=== PATIENT | female | born 1995 | race Caucasian/White ===

== ENCOUNTER 2017-02-22 16:27 | Emergency (ER) | payer SELFPAY ==
[2017-02-22 17:09] VITALS: BP 124/60
[2017-02-22] MEDS ORDERED: Sodium Chloride 0.9% 10 ML Syringe FLUSH PRN (17:21)
[2017-02-22] MEDS ORDERED: HYDROmorphone 0.5 MG/0.5 ML Syringe IVPUSH ONE (17:21)
[2017-02-22] MEDS ORDERED: Ondansetron 4 MG/2 ML SDV IVPUSH ONE (17:21)
--- NOTE | 2017-02-22 17:24 | EDM.PDOC ---
ED HPI GENERAL MEDICAL PROBLEM - General Chief Complaint: General Stated Complaint: SEVERE RT SIDE ABD PAIN Time Seen by Provider: 02/22/17 17:08 Source of Information: Reports: Patient, Old records, RN notes reviewed History Limitations: Reports: No limitations - History of Present Illness INITIAL COMMENTS - FREE TEXT/NARRATIVE: 21-year-old female presents emergency department for a complaint of right upper quadrant pain she has had pain for last 3-4 days was in the clinic yesterday for evaluation had plain films of the abdomen done the urinalysis blood work done urinalysis was remarkable concerning urinary tract infection however culture grew mixed contaminants, she has had nausea and vomiting with bile pain in the abdomen right upper quadrant is significantly worse after she eats rates it a 10 out of 10 will then resolve no difficulty with bowel movements she has had chills no fevers - Related Data Allergies Allergy/AdvReac Type Severity Reaction Status Date / Time No Known Allergies Allergy Verified 07/09/16 20:47 Home Meds: Home Meds NK [No Known Home Meds] 02/22/17 [History] Past Medical History Neurological History: Reports: Concussion Endocrine/Metabolic History: Reports: Obesity/BMI 30+ Dermatologic History: Reports: Other (see below) Other Dermatologic History: dandriff Social & Family History - Family History Family Medical History: Noncontributory - Tobacco Use Smoking Status *Q: Current Every Day Smoker Years of Tobacco use: 8 Packs/Tins Daily: 1 - Recreational Drug Use Recreational Drug Use: No ED ROS GENERAL - Review of Systems Review Of Systems: See Below Constitutional: Reports: chills. Denies: fever HEENT: Reports: No symptoms Respiratory: Reports: No Symptoms Cardiovascular: Reports: No symptoms GI/Abdominal: Reports: Abdominal pain, Flatus, Nausea, Vomiting : Reports: no symptoms Musculoskeletal: Reports: no symptoms Skin: Reports: no symptoms Neurological: Reports: No Symptoms ED EXAM, GENERAL - Physical Exam Exam: See Below Exam Limited By: No limitations General Appearance: alert, WD/WN, no apparent distress Head: atraumatic, normocephalic Neck: normal inspection, supple, non-tender, full range of motion Respiratory/Chest: no respiratory distress, lungs clear, normal breath sounds, no accessory muscle use Cardiovascular: regular rate, rhythm, no murmur GI/Abdominal: soft, tender (Right upper quadrant). No: distended, rigid, rebound, hernia, mass Course - Vital Signs Last Recorded V/S: Last Vital Signs Temp 97.9 F 02/22/17 17:00 Pulse 121 H 02/22/17 17:00 Resp 16 02/22/17 17:00 BP 124/60 02/22/17 17:00 Pulse Ox 99 02/22/17 17:00 - Orders/Labs/Meds Orders: Active Orders 24 hr Category Date Time Status Peripheral IV Care [RC] . DIRECTED Care 02/22/17 17:21 Active Abdomen Ltd [US] Stat Exams 02/22/17 17:20 Taken CULTURE URINE [RM] Urgent Lab 02/22/17 18:11 Uncollected Sodium Chloride 0.9% [Normal Saline] 1,000 ml Med 02/22/17 17:30 Active IV ASDIRECTED Sodium Chloride 0.9% [Saline Flush] Med 02/22/17 17:21 Active 10 ml FLUSH ASDIRECTED PRN Peripheral IV Insertion Adult [OM.PC] Urgent Oth 02/22/17 17:21 Ordered Medication Orders Sodium Chloride (Normal Saline) 1,000 mls @ 500 mls/hr IV ASDIRECTED JEFRY Last Admin: 02/22/17 17:36 Dose: 500 mls/hr Sodium Chloride (Saline Flush) 10 ml FLUSH ASDIRECTED PRN PRN Reason: Keep Vein Open Last Admin: 02/22/17 17:34 Dose: 10 ml Labs: Laboratory Tests 02/22/17 02/22/17 02/22/17 Range/Units 17:27 17:27 18:03 WBC 14.2 H (4.5-11.0) K/uL RBC 4.85 (3.30-5.50) M/uL Hgb 14.6 (12.0-15.0) g/dL Hct 42.1 (36.0-48.0) % MCV 87 (80-98) fL MCH 30 (27-31) pg MCHC 35 (32-36) % Plt Count 210 (150-400) K/uL Neut % (Auto) 83 H (36-66) % Lymph % (Auto) 8 L (24-44) % [place] % (Auto) 8 H (2-6) % Eos % (Auto) 0 L (2-4) % Baso % (Auto) 0 (0-1) % Sodium 139 L (140-148) mmol/L Potassium 3.4 L (3.6-5.2) mmol/L Chloride 100 (100-108) mmol/L Carbon Dioxide 27 (21-32) mmol/L Anion Gap 15.4 H (5.0-14.0) mmol/L BUN 9 (7-18) mg/dL Creatinine 0.9 (0.6-1.0) mg/dL Est Cr Clr Drug Dosing 80.42 mL/min Estimated GFR (MDRD) > 60 (>60) Glucose 112 H (74-106) mg/dL Calcium 8.7 (8.5-10.1) mg/dL Total Bilirubin 0.5 (0.2-1.0) mg/dL AST 10 L (15-37) U/L ALT 22 (12-78) U/L Alkaline Phosphatase 89 (46-116) U/L Total Protein 7.6 (6.4-8.2) g/dL Albumin 3.5 (3.4-5.0) g/dL Globulin 4.1 H (2.3-3.5) g/dL Albumin/Globulin Ratio 0.9 L (1.2-2.2) Urine Color Yellow Urine Appearance Cloudy Urine pH 5.0 (4.5-8.0) Ur Specific [place] 1.015 (1.008-1.030) Urine Protein 30 H (NEGATIVE) mg/dL Urine Glucose (UA) Normal (NEGATIVE) mg/dL Urine Ketones 50 H (NEGATIVE) mg/dL Urine Occult Blood Large (NEGATIVE) Urine Nitrite Positive H (NEGATIVE) Urine Bilirubin Small (NEGATIVE) Urine Urobilinogen 4 (NORMAL) mg/dL Ur Leukocyte Esterase Moderate (NEGATIVE) Urine RBC 5-10 H (0-5) Urine WBC 20-30 H (0-5) Ur Epithelial Cells Many Amorphous Sediment Not seen Urine Bacteria Many Urine Mucus Many Meds: Medications Generic Name Dose Route Start Last Admin Trade Name Freq PRN Reason Stop Dose Admin Sodium Chloride 1,000 mls @ 500 mls/hr 02/22/17 17:30 02/22/17 17:36 Normal Saline IV 500 mls/hr ASDIRECTED JEFRY Administration Sodium Chloride 10 ml 02/22/17 17:21 02/22/17 17:34 Saline Flush FLUSH 10 ml ASDIRECTED PRN Administration Keep Vein Open Discontinued Medications Generic Name Dose Route Start Last Admin Trade Name Freq PRN Reason Stop Dose Admin Hydromorphone HCl 0.5 mg 02/22/17 17:21 02/22/17 17:35 Dilaudid IVPUSH 02/22/17 17:22 0.5 mg ONETIME ONE Administration Ondansetron HCl 4 mg 02/22/17 17:21 02/22/17 17:34 Zofran IVPUSH 02/22/17 17:22 4 mg ONETIME ONE Administration Departure - Departure Time of Disposition: 18:14 Disposition: Home, Self-Care 01 Condition: good Clinical Impression: UTI, Urinary tract infectious disease Forms: ED Department Discharge Additional Instructions: Take the full course of antibiotics, use ibuprofen as needed for pain control, Please followup with your primary care provider in 3-5 days if not better, please call return to the emergency department with worsening of symptoms. - My Orders Last 24 Hours: My Active Orders 02/22/17 17:20 Abdomen Ltd [US] Stat 02/22/17 17:21 Peripheral IV Care [RC] . DIRECTED Sodium Chloride 0.9% [Saline Flush] 10 ml FLUSH ASDIRECTED PRN Peripheral IV Insertion Adult [OM.PC] Urgent 02/22/17 17:30 Sodium Chloride 0.9% [Normal Saline] 1,000 ml IV ASDIRECTED 02/22/17 18:11 CULTURE URINE [RM] Urgent - Assessment/Plan Last 24 Hours: My Active Orders 02/22/17 17:20 Abdomen Ltd [US] Stat 02/22/17 17:21 Peripheral IV Care [RC] . DIRECTED Sodium Chloride 0.9% [Saline Flush] 10 ml FLUSH ASDIRECTED PRN Peripheral IV Insertion Adult [OM.PC] Urgent 02/22/17 17:30 Sodium Chloride 0.9% [Normal Saline] 1,000 ml IV ASDIRECTED 02/22/17 18:11 CULTURE URINE [RM] Urgent Plan: Assessment Acuity = acute Site and laterality = urinary tract infection concern for development of pyelonephritis Etiology = bacterial cause probable Escherichia coli Manifestations = back pain, chills Location of injury = home Lab values = WBC elevated at 14.2 consistent leukocytosis, sodium low at 139 consistent hyponatremia potassium low at 3.4 consistent with hypokalemia, urinalysis is positive for nitrites, 5-10 rbc's consistent with hematuria a 20- 30 WBCs consistent with pyuria, ultrasound negative for any gallbladder abnormality official read radiology is pending Plan I did review lab work with her as well as ultrasound results because she has back pain has had chills does have elevated white count in the urine is suspicious even though it showed contaminant yesterday he thinks he is worthy of an empiric treatment therefore ciprofloxacin 500 mg by mouth twice a day x10 days followup with primary care in 3-5 days for evaluation Patient was in agreement with the plan all questions were answered, they were instructed to return to the emergency department or call for worsening symptoms. This note was dictated using [employer] voice recognition software please call with any questions.
[2017-02-22] MEDS ORDERED: Sodium Chloride 0.9% 1,000 ML IV SCH (17:30)
== END 2017-02-22 18:49 | disposition home or self-care (01) ==
LOC: JP.ED 16:27
DX: N39.0 Urinary tract infection, site not specified (principal); F17.210 Nicotine dependence, cigarettes, uncomplicated; E66.9 Obesity, unspecified; Z68.31 Body mass index [BMI] 31.0-31.9, adult
CPT/HCPCS: 36415; 76705; 80053; 81001; 85025; 87086; 87088; 87186; 96361; 96374; 96375; 99284; J1170; J2405; J7040; J7050

== ENCOUNTER 2017-02-23 20:57 | Emergency (ER) | payer SELFPAY ==
[2017-02-23] MEDS ORDERED: Sodium Chloride 0.9% 1,000 ML IV SCH (22:00)
--- NOTE | 2017-02-23 23:16 | EDM.PDOC ---
[id number] 4d sweats dehydrated Time Seen by Provider: 02/23/17 21:20 Source: Reports: Patient, Family History Limitations: Reports: No limitations - History of Present Illness INITIAL COMMENTS - FREE TEXT/NARRATIVE: 21-year-old female who has been ill for the past 4 or 5 days with nausea, intermittent abdominal pain and vomiting. She seems several providers and has had several different diagnoses including a UTI which she was started Cipro yesterday and has had 2 doses but vomited them both. She said nighttime sweats , feel she has marked decreased urination and has lightheadedness. Associated Symptoms (-Female): Reports: malaise, nausea/vomiting. Denies: diarrhea, fever/chills - Related Data Allergies/ADRs: Allergies Allergy/AdvReac Type Severity Reaction Status Date / Time No Known Allergies Allergy Verified 02/23/17 21:23 Home Meds: Home Meds Ciprofloxacin HCl [Cipro] 250 mg PO BID 02/23/17 [History] Past Medical History - Past Health History Medical/Surgical History: Denies Medical/Surgical History Gastrointestinal History: Reports: Chronic constipation [employer] History: Reports: Other OB/BYN History: G-3 P-2 Musculoskeletal History: Reports: Fracture Other Musculoskeletal History: ribs and toes Neurological History: Reports: Concussion Psychiatric History: Reports: Depression, Eating disorders, Other (see below) Other Psychiatric History: cutting Endocrine/Metabolic History: Reports: Obesity/BMI 30+ Dermatologic History: Reports: Other (see below) Other Dermatologic History: dandriff - Infectious Disease History Infectious Disease History: Reports: Chicken pox - Past Surgical History HEENT Surgical History: Reports: Myringotomy w tube(s), Tonsillectomy Social & Family History - Family History Family Medical History: Noncontributory - Tobacco Use Smoking Status *Q: Current Every Day Smoker Years of Tobacco use: 9 Packs/Tins Daily: 1 - Caffeine Use Caffeine Use: Reports: Soda, Tea - Recreational Drug Use Recreational Drug Use: Yes Recreational Drug Type: Reports: Marijuana/Hashish, Methamphetamine Recreational Drug Use Frequency: Not Used In Over 4 Months Recreational Drug Last Use: marijyana yesterday ED ROS GENERAL - Review of Systems Review Of Systems: See Below Constitutional: Reports: malaise, weakness, diaphoresis HEENT: Reports: No symptoms Respiratory: Denies: Shortness of Breath, Cough Cardiovascular: Denies: Chest pain GI/Abdominal: Reports: Abdominal pain (Intermittent cramping), Nausea, Vomiting : Reports: other (Decreased urinary frequency, no dysuria) Skin: Reports: no symptoms Neurological: Denies: Headache ED EXAM, GI/ABD - Physical Exam Exam: See Below Exam Limited By: No limitations General Appearance: alert, no apparent distress Eyes: bilateral: normal appearance (Appears well-hydrated, no jaundice) Respiratory/Chest: no respiratory distress, lungs clear Cardiovascular: regular rate, rhythm GI/Abdominal: soft, non tender Neurological: alert, oriented Psychiatric: normal affect, normal mood Skin Exam: Warm, Dry Course - Vital Signs Last Recorded V/S: Last Vital Signs Temp 98.4 F 02/23/17 22:45 Pulse 87 02/23/17 23:50 Resp 16 02/23/17 23:50 BP 123/71 02/23/17 23:50 Pulse Ox 98 02/23/17 23:50 - Orders/Labs/Meds Labs: Laboratory Tests 02/23/17 02/23/17 02/23/17 Range/Units 21:53 21:53 22:13 WBC 7.4 (4.5-11.0) K/uL RBC 4.72 (3.30-5.50) M/uL Hgb 14.2 (12.0-15.0) g/dL Hct 41.0 (36.0-48.0) % MCV 87 (80-98) fL MCH 30 (27-31) pg MCHC 35 (32-36) % Plt Count 194 (150-400) K/uL Neut % (Auto) 73 H (36-66) % Lymph % (Auto) 14 L (24-44) % [place] % (Auto) 12 H (2-6) % Eos % (Auto) 0 L (2-4) % Baso % (Auto) 1 (0-1) % Sodium 138 L (140-148) mmol/L Potassium 3.6 (3.6-5.2) mmol/L Chloride 100 (100-108) mmol/L Carbon Dioxide 26 (21-32) mmol/L Anion Gap 15.6 H (5.0-14.0) mmol/L BUN 9 (7-18) mg/dL Creatinine 0.8 (0.6-1.0) mg/dL Est Cr Clr Drug Dosing 90.47 mL/min Estimated GFR (MDRD) > 60 (>60) Glucose 86 (74-106) mg/dL Calcium 8.6 (8.5-10.1) mg/dL Urine Color Yellow Urine Appearance Slightly cloudy Urine pH 5.0 (4.5-8.0) Ur Specific [place] 1.015 (1.008-1.030) Urine Protein Trace (NEGATIVE) mg/dL Urine Glucose (UA) Normal (NEGATIVE) mg/dL Urine Ketones 50 H (NEGATIVE) mg/dL Urine Occult Blood Large (NEGATIVE) Urine Nitrite Negative (NEGATIVE) Urine Bilirubin Negative (NEGATIVE) Urine Urobilinogen 4 (NORMAL) mg/dL Ur Leukocyte Esterase Negative (NEGATIVE) Urine RBC 0-5 (0-5) Urine WBC 0-5 (0-5) Ur Epithelial Cells Few Urine Bacteria Rare Urine Mucus Not seen Meds: Medications Discontinued Medications Generic Name Dose Route Start Last Admin Trade Name Freq PRN Reason Stop Dose Admin Sodium Chloride 1,000 mls @ 500 mls/hr 02/23/17 22:00 02/23/17 22:18 Normal Saline IV 500 mls/hr ASDIRECTED [facility] Administration - Re-Assessments/Exams Free Text/Narrative Re-Assessment/Exam: 02/23/17 23:15 A urine was obtained by quick catheterization. CBC and BMP were obtained. She had ketones in urine but otherwise all labs were normal. She likely has a gastroenteritis that is running its course, I don't think antibiotics are needed. She was given 5 doses of Zofran to take home for when necessary nausea treatment and she can recheck in the next 48 hours if not improving. Departure - Departure Time of Disposition: 00:19 Disposition: Home, Self-Care 01 Condition: good Clinical Impression: Gastroenteritis, Dehydration, mild Instructions: Viral Gastroenteritis, Adult, [id number], Dehydration, Adult Referrals: PCP,None [Primary Care Provider] - Forms: ED Department Discharge Care Plan Goals: Use Zofran as directed for nausea and vomiting, otherwise increase diet and activity as tolerated concentrating on fluids for the first 1-2 days. Consider rechecking in 3-4 days if not significant improvement or return anytime sooner if worsening or concerns.
[2017-02-24 00:14] VITALS: BP 123/71
== END 2017-02-24 00:21 | disposition home or self-care (01) ==
LOC: JP.ED 20:57
DX: K52.9 Noninfective gastroenteritis and colitis, unspecified (principal); E86.0 Dehydration; F17.210 Nicotine dependence, cigarettes, uncomplicated; E66.9 Obesity, unspecified; Z68.31 Body mass index [BMI] 31.0-31.9, adult; Z96.22 Myringotomy tube(s) status; Z98.890 Other specified postprocedural states
CPT/HCPCS: 36415; 80048; 81001; 85025; 96360; 96361; 99284; J7040; 99283

== ENCOUNTER 2019-03-02 12:22 | Emergency (ER) | payer MEDICAID ==
[2019-03-02] MEDS ORDERED: Ondansetron 4 MG Tab.DIS PO ONE (12:47)
--- NOTE | 2019-03-02 12:51 | EDM.PDOC ---
ED HPI GENERAL MEDICAL PROBLEM - General Chief Complaint: Gastrointestinal Problem Stated Complaint: DIZZY, CAN'T KEEP ANYTHING DOWN Time Seen by Provider: 03/02/19 12:35 Source of Information: Reports: Patient, Old Records, RN History Limitations: Reports: No Limitations - History of Present Illness INITIAL COMMENTS - FREE TEXT/NARRATIVE: 23 yo female regular marijuana user stopped smoking this about 3 days ago when her sx's began. Is dizzy with standing. No fever or bleeding. Has not discussed with her provider. Is dizzy with standing. Onset: Gradual Onset Date: 02/27/19 Duration: Day(s): (3+), Constant Location: Reports: Generalized Quality: Reports: Other (no pain) Severity: Moderate Improves with: Reports: None Worsens with: Reports: Eating Context: Reports: Other (see HPI) Associated Symptoms: Reports: Other (dizzy with standing.) Treatments GEOMAGNETICIAN: Reports: Other (see below) (none) Abdominal Pain Score (Numeric/FACES): 6 - Related Data Allergies Allergy/AdvReac Type Severity Reaction Status Date / Time No Known Allergies Allergy Verified 02/23/17 21:23 Home Meds: Home Meds Cholecalciferol (Vitamin D3) [Vitamin D] 5,000 unit PO DAILY 03/02/19 [History] QUEtiapine [SEROquel] 100 mg PO BID 03/02/19 [History] Past Medical History - Past Health History Medical/Surgical History: Denies Medical/Surgical History HEENT History: Reports: Impaired Vision Gastrointestinal History: Reports: Chronic Constipation MOLDER INFLATED BALL History: Reports: Other MOLDER INFLATED BALL History: G-3 P-2 Musculoskeletal History: Reports: Fracture Other Musculoskeletal History: ribs and toes Neurological History: Reports: Concussion Psychiatric History: Reports: Anxiety, Depression, Eating Disorders, Panic Attack, Suicide Attempt Other Psychiatric History: cutting Endocrine/Metabolic History: Reports: Obesity/BMI 30+, Other (See Below) Other Endocrine/Metabolic History: hypoglycemia Dermatologic History: Reports: Other (See Below) Other Dermatologic History: dandriff - Infectious Disease History Infectious Disease History: Reports: Chicken Pox - Past Surgical History HEENT Surgical History: Reports: Myringotomy w Tube(s), Tonsillectomy Social & Family History - Family History Family Medical History: Noncontributory - Tobacco Use Smoking Status *Q: Heavy Tobacco Smoker Years of Tobacco use: 10 Packs/Tins Daily: 0.5 - Caffeine Use Caffeine Use: Reports: Coffee, Energy Drinks, Soda - Recreational Drug Use Recreational Drug Use: Yes Recreational Drug Type: Reports: Marijuana/Hashish ED ROS GENERAL - Review of Systems Review Of Systems: See Below Constitutional: Reports: No Symptoms HEENT: Reports: No Symptoms Respiratory: Reports: No Symptoms Cardiovascular: Reports: Lightheadedness (with standing) Endocrine: Reports: No Symptoms GI/Abdominal: Reports: Nausea, Vomiting. Denies: Abdominal Pain, Black Stool, Bloody Stool, Diarrhea, Hematemesis, Hematochezia : Reports: No Symptoms Musculoskeletal: Reports: No Symptoms Skin: Reports: No Symptoms Neurological: Reports: No Symptoms Psychiatric: Reports: No Symptoms ED EXAM, GI/ABD - Physical Exam Exam: See Below Exam Limited By: No Limitations General Appearance: Alert, WD/WN, No Apparent Distress Eyes: Bilateral: Normal Appearance Ears: Normal External Exam, Normal Canal, Hearing Grossly Normal, Normal TMs Nose: Normal Inspection, Normal Mucosa, No Blood Throat/Mouth: Normal Inspection, Normal Lips, Normal Oropharynx, Normal Voice, No Airway Compromise Head: Atraumatic, Normocephalic Neck: Normal Inspection Respiratory/Chest: No Respiratory Distress, Lungs Clear, Normal Breath Sounds, No Accessory Muscle Use Cardiovascular: Regular Rate, Rhythm, No Edema GI/Abdominal Exam: Normal Bowel Sounds, Soft, Non-Tender, No Distention Back Exam: Normal Inspection. No: CVA Tenderness (R), CVA Tenderness (L) Extremities: Normal Inspection, Normal Range of Motion, Non-Tender, No Pedal Edema Neurological: Oriented, CN II-XII Intact, Normal Cognition, No Motor/Sensory Deficits Psychiatric: Normal Affect, Normal Mood Skin Exam: Warm, Dry, Intact, Normal Color, No Rash Course - Vital Signs Text/Narrative:: Much better after treatment. Last Recorded V/S: Last Vital Signs Temp 35.4 C 03/02/19 12:43 Pulse 100 03/02/19 12:43 Resp 17 03/02/19 12:43 BP 150/86 H 03/02/19 12:43 Pulse Ox 97 03/02/19 12:43 Orthostatic Blood Pressure [ 122/75 Standing] Orthostatic Blood Pressure [ 132/79 Sitting] Orthostatic Blood Pressure [ 124/72 Supine] - Orders/Labs/Meds Orders: Active Orders 24 hr Category Date Time Status Orthostatic Vital Signs [RC] ASDIRECTED Care 03/02/19 12:47 Active Meds: Medications Discontinued Medications Generic Name Dose Route Start Last Admin Trade Name [place] PRN Reason Stop Dose Admin Lactated Ringer's 1,000 mls @ 1,000 mls/hr 03/02/19 13:14 03/02/19 13:35 Ringers, Lactated IV 03/02/19 14:13 1,000 mls/hr BOLUS ONE Administration Ondansetron HCl 4 mg 03/02/19 12:47 03/02/19 12:50 Zofran Odt PO 03/02/19 12:48 4 mg ONETIME ONE Administration Departure - Departure Time of Disposition: 14:35 Disposition: Home, Self-Care 01 Condition: Good Clinical Impression: Mild dehydration Nausea and vomiting Qualifiers: Vomiting type: unspecified Vomiting Intractability: non-intractable Qualified Code(s): R11.2 - Nausea with vomiting, unspecified - Discharge Information *PRESCRIPTION DRUG MONITORING PROGRAM REVIEWED*: No *COPY OF PRESCRIPTION DRUG MONITORING REPORT IN PATIENT RICARDO: No Instructions: Nausea and Vomiting, Adult, [id number] Referrals: Loreto Valera CNM [Primary Care Provider] - Forms: ED Department Discharge Additional Instructions: Use Zofran as needed for control of your nausea. Recheck with your provider early in the next week if not improved. - My Orders Last 24 Hours: My Active Orders 03/02/19 12:47 Orthostatic Vital Signs [RC] ASDIRECTED - Assessment/Plan Last 24 Hours: My Active Orders 03/02/19 12:47 Orthostatic Vital Signs [RC] ASDIRECTED
[2019-03-02] MEDS ORDERED: Lactated Ringers 1,000 ML IV ONE (13:14)
[2019-03-02 14:40] VITALS: BP 150/86
== END 2019-03-02 14:39 | disposition home or self-care (01) ==
LOC: JP.ED 12:22
DX: E86.0 Dehydration (principal); R11.2 Nausea with vomiting, unspecified; F17.210 Nicotine dependence, cigarettes, uncomplicated; Z79.899 Other long term (current) drug therapy
CPT/HCPCS: 96360; 99283; A9270; J7120

== ENCOUNTER 2019-07-26 12:03 | Emergency (ER) | payer MEDICAID ==
[2019-07-26 12:34] VITALS: BP 136/83
[2019-07-26] MEDS ORDERED: Ketorolac 60 MG/2 ML SDV IM ONE (13:13)
[2019-07-26] MEDS ORDERED: Cyclobenzaprine 10 MG Tab PO ONE (13:13)
[2019-07-26] MEDS ORDERED: hydrOXYzine HCl 100 MG/2 ML SDV IM ONE (13:13)
--- NOTE | 2019-07-26 13:19 | EDM.PDOC ---
ED HPI GENERAL MEDICAL PROBLEM - General Chief Complaint: Upper Extremity Injury/Pain Stated Complaint: LEFT SHOULDER INJURY Time Seen by Provider: 07/26/19 13:07 Source of Information: Reports: Patient, Family History Limitations: Reports: No Limitations - History of Present Illness INITIAL COMMENTS - FREE TEXT/NARRATIVE: Alert 24 yo right handed female presents with significant other due to left upper back, shoulder and upper chest pain this am. Patient and significant other were moving yesterday. Patient denies any specific injury while moving yesterday. Patient slept well but woke up this am with pain which has made her nauseated resulting in vomiting x 1. Patient often vomits in the am due to anxiety and is unsure if vomiting this am was per usual or due to pain. Patient denies any allergies to medications, or taken any medications this am for pain. Patient's pain in 4 out of 10 at rest and more severe with movement of her left arm. Patient denies fall or specific injury, previous injury or surgery in painful area. Patient has slight pain with breathing which is localized to upper back, neck and anterior chest. Patient denies fever , chills, seats, cough or URI symptoms. Left Shoulder Pain Score (Numeric/FACES): 8 - Related Data Allergies Allergy/AdvReac Type Severity Reaction Status Date / Time No Known Allergies Allergy Verified 07/26/19 13:06 Home Meds: Home Meds Cholecalciferol (Vitamin D3) [Vitamin D] 5,000 unit PO DAILY 03/02/19 [History] Ondansetron [Zofran ODT] 4 mg PO Q6H PRN #7 tab.dis 03/02/19 [Rx] QUEtiapine [SEROquel] 100 mg PO BID 03/02/19 [History] Cyclobenzaprine [Flexeril] 5 - 10 mg PO TID PRN 5 Days #15 tab 07/26/19 [Rx] Ibuprofen 800 mg PO Q6H PRN 20 Days #30 tablet 07/26/19 [Rx] Past Medical History - Past Health History Medical/Surgical History: Denies Medical/Surgical History HEENT History: Reports: Impaired Vision Gastrointestinal History: Reports: Chronic Constipation EMERGENCY MEDICAL TECHNICIAN BASIC History: Reports: Other EMERGENCY MEDICAL TECHNICIAN BASIC History: G-3 P-2 Musculoskeletal History: Reports: Fracture Other Musculoskeletal History: ribs and toes Neurological History: Reports: Concussion Psychiatric History: Reports: Anxiety, Depression, Eating Disorders, Panic Attack, Suicide Attempt Other Psychiatric History: cutting Endocrine/Metabolic History: Reports: Obesity/BMI 30+, Other (See Below) Other Endocrine/Metabolic History: hypoglycemia Dermatologic History: Reports: Other (See Below) Other Dermatologic History: dandriff - Infectious Disease History Infectious Disease History: Reports: Chicken Pox - Past Surgical History HEENT Surgical History: Reports: Myringotomy w Tube(s), Tonsillectomy Social & Family History - Family History Family Medical History: Noncontributory - Tobacco Use Smoking Status *Q: Current Every Day Smoker Years of Tobacco use: 1 Packs/Tins Daily: 1 - Caffeine Use Caffeine Use: Reports: Energy Drinks, Soda - Recreational Drug Use Recreational Drug Use: Yes Recreational Drug Type: Reports: Marijuana/Hashish Review of Systems - Review of Systems Review Of Systems: ROS reveals no pertinent complaints other than HPI. ED EXAM, GENERAL - Physical Exam Exam: See Below Exam Limited By: No Limitations General Appearance: Alert, WD/WN, Anxious (per usual), Mild Distress (due to left chest, shoulder and upper back pain wtih nausea) Eye Exam: Bilateral Eye: EOMI, PERRL Ears: Normal External Exam, Normal Canal, Hearing Grossly Normal Nose: Normal Inspection, Normal Mucosa, No Blood Throat/Mouth: Normal Inspection, Normal Lips, Normal Teeth, Normal Gums, Normal Oropharynx, Normal Voice, No Airway Compromise Head: Atraumatic, Normocephalic Neck: Normal Inspection, Supple, Tender Lateral (decreased ROM due to pain. Left levator and scalenne tender to palpation along with upper trapezius muscle and upper pectoralis muscle. Pain is reproducable to palpation and worsens with movement) Respiratory/Chest: No Respiratory Distress, Lungs Clear, Normal Breath Sounds, No Accessory Muscle Use. No: Chest Non-Tender (left upper outer pectoralis muscle pain to palpation) Cardiovascular: Normal Peripheral Pulses, Regular Rate, Rhythm, No Edema GI/Abdominal: Normal Bowel Sounds (limited due to body habitus), Soft, Non- Tender, No Organomegaly, No Distention, No Abnormal Bruit, No Mass Back Exam: Normal Inspection, Full Range of Motion, Muscle Spasm (left upper trapezius ). No: CVA Tenderness (R), CVA Tenderness (L), Decreased Range of Motion, Paraspinal Tenderness, Vertebral Tenderness Extremities: Normal Inspection (pain with movement of left arm), Normal Range of Motion, Non-Tender, Normal Capillary Refill, No Pedal Edema Neurological: Alert, Oriented, CN II-XII Intact, Normal Cognition, Normal Gait, Normal Reflexes, No Motor/Sensory Deficits Psychiatric: Anxious, Tearful Skin Exam: Warm, Dry, Intact, Normal Color, No Rash Course - Vital Signs Last Recorded V/S: Last Vital Signs Temp 35.2 C 07/26/19 12:55 Pulse 66 07/26/19 12:55 Resp 16 07/26/19 12:55 BP 136/83 07/26/19 12:55 Pulse Ox 99 07/26/19 12:55 - Orders/Labs/Meds Meds: Medications Discontinued Medications Generic Name Dose Route Start Last Admin Trade Name Freq PRN Reason Stop Dose Admin Cyclobenzaprine HCl 10 mg 07/26/19 13:13 07/26/19 13:23 Flexeril PO 07/26/19 13:14 10 mg ONETIME ONE Administration Hydroxyzine HCl 50 mg 07/26/19 13:13 07/26/19 13:24 Vistaril IM 07/26/19 13:14 50 mg ONETIME ONE Administration Ketorolac Tromethamine 60 mg 07/26/19 13:13 07/26/19 13:23 Toradol IM 07/26/19 13:14 60 mg ONETIME ONE Administration Departure - Departure Time of Disposition: 14:14 Disposition: Home, Self-Care 01 Clinical Impression: Muscle strain of left upper back - Discharge Information Prescriptions: Cyclobenzaprine [Flexeril] 5 - 10 mg PO TID PRN 5 Days #15 tab PRN Reason: Muscle Spasm Ibuprofen 800 mg PO Q6H PRN 20 Days #30 tablet PRN Reason: inflammation Instructions: Muscle Strain, Cryotherapy, Neck Exercises, RICE for Routine Care of Injuries Referrals: Loreto Valera CNM [Primary Care Provider] - 2 Weeks Forms: ED Department Discharge - Problem List & Annotations (1) Muscle strain of left upper back SNOMED Code(s): 560140793 Code(s): S29.012A - STRAIN OF MUSCLE AND TENDON OF BACK WALL OF THORAX, INIT Status: Acute Current Visit: Yes (2) Trapezius muscle strain SNOMED Code(s): 069678972 Code(s): S46.819A - STRAIN OF MUSC/FASC/TEND AT SHLDR/UP ARM, UNSP ARM, INIT Status: Acute Current Visit: Yes
== END 2019-07-26 14:30 | disposition home or self-care (01) ==
LOC: JP.ED 12:03
DX: S29.012A Strain of muscle and tendon of back wall of thorax, initial encounter (principal); F41.9 Anxiety disorder, unspecified; F32.9 Major depressive disorder, single episode, unspecified; F17.210 Nicotine dependence, cigarettes, uncomplicated; Z79.899 Other long term (current) drug therapy; X50.0XXA Overexertion from strenuous movement or load, initial encounter
CPT/HCPCS: 96372; 99283; A9270; J1885; J3410

== ENCOUNTER 2019-09-29 05:27 | Emergency (ER) | payer MEDICAID ==
[2019-09-29] MEDS ORDERED: LORazepam 0.5 MG Tab PO ONE (05:40)
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
[2019-09-29 06:59] VITALS: BP 129/82; PULSE 129
[2019-09-29] MEDS ORDERED: Acetaminophen 325 MG Tab PO ONE (07:23)
[2019-09-29] MEDS ORDERED: fentaNYL 100 MCG/2 ML SDV IVPUSH ONE (07:26)
[2019-09-29] MEDS ORDERED: Sodium Chloride 0.9% 100 ML IV STA (07:49)
[2019-09-29] MEDS ORDERED: Iopamidol 755 Mg/ML 100 ML Bottle IV STA (07:49)
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
--- NOTE | 2019-09-29 09:01 | CRLCT ---
--- Preliminary Report --- -Artifact and suboptimal contrast bolus significantly limit evaluation, particularly of the vertebral arteries. -No evidence for cervical arterial injury or dissection within exam limitations. Preliminary Report by Dr. Aashish Stein @ Sep 29 2019 9:00AM --- Preliminary Report ---
== END 2019-09-29 09:19 | disposition home or self-care (01) ==
LOC: JP.ED 05:27
DX: S02.2XXA Fracture of nasal bones, initial encounter for closed fracture (principal); S00.83XA Contusion of other part of head, initial encounter; E66.9 Obesity, unspecified; F17.210 Nicotine dependence, cigarettes, uncomplicated; Z68.36 Body mass index [BMI] 36.0-36.9, adult; Y04.0XXA Assault by unarmed brawl or fight, initial encounter; Y92.89 Other specified places as the place of occurrence of the external cause
CPT/HCPCS: 70486; 70498; 73120; 81025; 96374; 99284; A9270; J3010; J7030; Q9967

== ENCOUNTER 2021-11-04 11:01 | Emergency (ER) | payer MEDICAID | END 2021-11-04 13:49 | disposition left against medical advice (07) | LOC: JP.ED 11:01 | DX: R12 Heartburn (principal); Z53.21 Procedure and treatment not carried out due to patient leaving prior to being seen by health care provider ==

== ENCOUNTER 2021-11-04 21:01 | Emergency (ER) | payer MEDICAID ==
[2021-11-04 21:28] VITALS: BP 153/104; PULSE 105
[2021-11-04] MEDS ORDERED: Ondansetron 4 MG Tab.DIS PO ONE (21:30)
[2021-11-04] MEDS ORDERED: Aluminum Hydroxide/Magnesium Hydroxide/Simethicone Susp 30 ML Cup PO STA ×2 (21:30→22:24)
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
[2021-11-04] MEDS ORDERED: Famotidine 20 MG Tab PO ONE (22:25)
[2021-11-04] MEDS ORDERED: Lactated Ringers 1,000 ML IV ONE (22:45)
[2021-11-04] MEDS ORDERED: Metoclopramide 10 MG/2 ML SDV IVPUSH ONE (22:45)
== END 2021-11-05 00:06 | disposition home or self-care (01) ==
LOC: JP.ED 21:01
DX: K29.20 Alcoholic gastritis without bleeding (principal); E66.9 Obesity, unspecified; Z68.37 Body mass index [BMI] 37.0-37.9, adult; Z72.0 Tobacco use
CPT/HCPCS: 96374; 99283; A9270; J2765; J7120

== ENCOUNTER 2023-07-06 11:05 | Emergency (ER) | payer MEDICAID ==
[2023-07-06] MEDS ORDERED: Pantoprazole 40 MG Tab.CR PO SCH (12:45)
[2023-07-06 12:58] LABS: BASOPHILS ABSOLUTE AUTO 0.07 K/uL (0.00-0.10); BASOPHILS PERCENT AUTO 0.8 % (0.1-1.3); EOSINOPHILS ABSOLUTE AUTO 0.11 K/uL (0.00-0.40); EOSINOPHILS PERCENT AUTO 1.3 % (0.0-5.4); HEMATOCRIT 45.1 % (34.3-46.0); HEMOGLOBIN 15.7 g/dL (11.2-15.5); IMMATURE GRAN PERCENT AUTO 0.2 % (0.0-0.7); LYMPHOCYTES ABSOLUTE AUTO 2.19 K/uL (0.8-3.3); LYMPHOCYTES PERCENT AUTO 25.6 % (11.4-47.7); MEAN CORPUSCULAR HEMOGLOBIN 34.1 pg (31.6-35.5); MEAN CORPUSCULAR HGB CONC 34.8 g/dL (31.6-35.5); MEAN CORPUSCULAR VOLUME 97.8 fL (81.4-99.0); MONOCYTES ABSOLUTE AUTO 0.59 K/uL (0.20-0.90); MONOCYTES PERCENT AUTO 6.9 % (3.3-12.6); NEUTROPHILS ABSOLUTE AUTO 5.57 K/uL (1.0-7.6); NEUTROPHILS PERCENT AUTO 65.2 % (40.0-78.1); PLATELET COUNT,PLT 247 K/uL (130-375); RED BLOOD CELL COUNT 4.61 M/uL (3.77-5.24); WHITE BLOOD CELL COUNT,WBC 8.6 K/uL (3.2-11.0)
[2023-07-06 13:00] LABS: IMMATURE GRAN ABSOLUTE AUTO 0.02 K/uL (0.00-0.23)
[2023-07-06 13:14] LABS: CALCIUM 8.8 mg/dL (8.5-10.1); CREATININE 0.8 mg/dL (0.6-1.0); EST CRCL DRUG DOSING (CG) 81.33 mL/min; POTASSIUM,K 4.8 mmol/L (3.6-5.2)
[2023-07-06 13:19] LABS: PROTHROMBIN TIME 9.8 sec (9.2-10.6)
[2023-07-06 13:20] LABS: ANION GAP 12.8 mmol/L (5.0-14.0)
[2023-07-06 13:22] VITALS: BP 135/91; PULSE 84
== END 2023-07-06 14:09 | disposition home or self-care (01) ==
LOC: JP.ED 11:05
DX: K29.01 Acute gastritis with bleeding (principal); K92.0 Hematemesis; F17.210 Nicotine dependence, cigarettes, uncomplicated; E66.9 Obesity, unspecified; Z68.39 Body mass index [BMI] 39.0-39.9, adult
CPT/HCPCS: 36415; 80048; 85025; 85610; 85730; 86850; 86900; 86901; 99284; A9270

== ENCOUNTER 2023-07-07 06:48 | Day surgery (SDC) | payer MEDICAID ==
[~2023-07-07 06:48] MED LIST: Midazolam 1 MG/ML 2 ML SDV ONE; Propofol 200 MG/20 ML SDV ONE; fentaNYL 50 MCG/ML SDV ONE
[2023-07-07] MEDS ORDERED: Sodium Chloride 0.9% 1,000 ML IV SCH (07:30)
[2023-07-07 09:28] VITALS: BP 134/90; PULSE 72
== END 2023-07-07 09:38 | disposition home or self-care (01) ==
LOC: JP.SDS 06:48
PROVIDERS: ATTEND Surgery
DX: K22.89 Other specified disease of esophagus (principal); F43.10 Post-traumatic stress disorder, unspecified; F41.9 Anxiety disorder, unspecified; E66.9 Obesity, unspecified; Z85.53 Personal history of malignant neoplasm of renal pelvis; Z68.41 Body mass index [BMI] 40.0-44.9, adult
CPT/HCPCS: 43239; 81025; J2250; J2704; J3010; J7030